=== PATIENT | female | born 1955 | race Caucasian/White ===

== ENCOUNTER → 2016-10-21 | Outpatient (CLI) | payer BC ==
[~2016-10-21] MED LIST: AMBI5TAB PO; AMLO2.5T PO; AMLO5TAB2 PO; ATOR40TA16 PO; BUTA1CAP PO; CAND16TA PO; CAND32TA10 PO; CLON.1 PO; CYAN100025 PO; FLUT50SP EACH NARE; HYDR-3533 PO; LOSA100T2 PO; METO50TA11 PO; SOMA350T PO; TERI14TA PO; VENL75TA PO
--- NOTE | 2016-10-21 17:05 | EKG ---
Date Performed: 10/21/2016 Time Performed: 12:54:25 PTAGE: 61 years EKG: SINUS BRADYCARDIA POSSIBLE LEFT ATRIAL ENLARGEMENT NONSPECIFIC ST & T-WAVE ABNORMALITY BORD KASIA ECG PREVIOUS TRACING : 02/04/2010 15.06 Compared to prior tracing no significant change DOCTOR: Reena Pollack Interpretating Date/Time 10/21/2016 17:05:06
== END ==
LOC: CPRE 12:36
PROVIDERS: ATTEND Obstetrics & Gynecology
DX: Z01.810 Encounter for preprocedural cardiovascular examination (principal); N85.00 Endometrial hyperplasia, unspecified; D25.9 Leiomyoma of uterus, unspecified; R94.31 Abnormal electrocardiogram [ECG] [EKG]
CPT/HCPCS: 93005

== ENCOUNTER → 2016-10-23 | Day surgery (SDC) | payer BC ==
--- NOTE | 2016-10-22 11:03 | MH ---
cc: TING JONES DATE OF ADMISSION 10/23/2016 DATE OF 1955 ADMITTING DIAGNOSIS bleeding with uterine fibroids. HISTORY OF PRESENT ILLNESS This is a 62-year-old white female para 1-1-2-1 reports LMP about 2001. Usually has some cramping each month that resolves spontaneously. Due to the cramping and discomfort, a pelvic ultrasound was obtained on 09/26/2016 which revealed at least two fibroids with endometrial thickening of 7-8 mm. The right ovary could not be seen, the left was normal, a simple cyst on the left ovary. She is now admitted for surgical evaluation. PAST OBSTETRICAL HISTORY Two vaginal deliveries, one son from a motor vehicle accident, two miscarriages. MEDICATIONS Include: 1. Amlodipine 2. Atorvastatin 3. Aubagio 4. Fioricet 5. Candesartan 6. Carisoprodol 7. Clonidine 8. Flonase 9. Hydrocodone 10. Losartan 11. Metoprolol. 12. Venlafaxine SERIOUS MEDICAL ILLNESSES MS ALLERGIES NEURONTIN SURGERIES None SOCIAL HISTORY Retired, 38 years. Alcohol, tobacco and drugs are none. FAMILY HISTORY Her family history is noncontributory. PHYSICAL EXAM This is a well-nourished well-developed white female. VITAL SIGNS: Stable. HEENT: Exam is normal. CHEST: Clear. HEART: Regular rate. BREASTS: The breasts are symmetrical. ABDOMEN: Benign. PELVIC: Normal external genitalia and BUS. The cervix is normal. Uterus is upper limits of normal size. Adnexa nonpalpable. ASSESSMENT As above. PLAN She is now admitted for hysteroscopy, D&C. While in the office, I explained procedures, the risks, benefits and complications and the possible need for additional treatment pending findings. The patient would like to proceed. MD YOLANDA Parker/DEJON /10:03 AM /10:37 AM
[~2016-10-23] VITALS: Ht 165.1 cm; Wt 55.9 kg
[~2016-10-23] MED LIST changes: +ACETAMINOPHEN 1000 MG/100 ML VIAL IV ONE; +ACETAMINOPHEN 1000 MG/100 ML VIAL IV SCH; -AMLO2.5T PO; -CAND16TA PO; +CHLORHEXIDINE GLUCONATE 2 % 1 PACK (2 CLOTHS) TOPICAL PRN; +DEXAMETHASONE SOD PHOS 4 MG/ML VIAL ONE; +DICLOFENAC SODIUM 37.5 MG/ML VIAL IV PUSH ONE; +DO NOT ADM ANY ANTICOAGULANT DRUGS PRN; +FAMOTIDINE 20 MG/2 ML VIAL ONE; +INSULIN HUMAN REGULAR 1,000 UNITS/10 ML VIAL SQ PRN; +LACTATED RINGER'S 1000 ML IV PRN; +METOPROLOL TARTRATE 25 MG TAB PO PRN; +MIDAZOLAM HCL 2 MG/2 ML VIAL ONE; +ONDANSETRON HCL 4 MG/2 ML VIAL IV PUSH ONE; +POVIDONE IODINE 5% (ANTISEPSIS KIT) 4 APPLICATIONS EACH NARE PRN; +PROMETHAZINE INJ 25 MG/ML VIAL IM PRN; +PROPOFOL 200 MG/20 ML AMP IV ONE; +SODIUM CHLORID 0.9% 500 ML IV PRN; +SODIUM CHLORIDE 0.9% INJ 100 ML ONE; +ceFAZolin 1,000 MG/NS 100 ML IV SCH; +ceFAZolin INJ 1,000 MG VIAL ONE
[2016-10-23 05:52] VITALS: BP 147/84; PULSE 59; RESP 20; TEMP 97.9; O2SAT 98
[2016-10-23 09:00] VITALS: BP 144/79; PULSE 50; RESP 18; TEMP 96.9; O2SAT 100
--- NOTE | 2016-10-24 15:07 | MP ---
cc: TING JONES DATE OF SURGERY: 10/23/2016. PREOPERATIVE DIAGNOSIS: Pelvic pain, uterine fibroids and endometrial thickening. POSTOPERATIVE DIAGNOSIS: Pelvic pain, uterine fibroids and endometrial thickening plus endometrial polyp. OPERATIVE PROCEDURE PERFORMED: Hysteroscopy and D&C. SURGEON: Ting Jones MD. ANESTHESIA General LMA. ESTIMATED BLOOD LOSS: Less than 5 cc. FLUIDS: 5 cc crystalloid. DESCRIPTION OF THE PROCEDURE IN DETAIL / OBJECTIVE FINDINGS Following the induction of adequate general LMA anesthesia the patient was prepped and draped supine on the operating table in the dorsal lithotomy position in the usual sterile fashion with the bladder being drained by in and out catheterization. Examination under anesthesia revealed about a ten week sized fibroid uterus. Adnexa nonpalpable. The cervix was exposed with hand-held retractors, grasped anteriorly with a single tooth tenaculum and sounded to 7 cm with a soft, atraumatic dilator. The cervix was dilated to an 18 Hanks dilator. The hysteroscope was passed through a normal cervix to reveal a small endometrial polyp. Endocervical was with a small serrated curette. The polyp was removed with polyp forceps. The uterus was curetted with small serrated curette for additional tissue, small in amount. The scope was passed again. The endometrial cavity was clean. All instruments were removed. All counts were correct. The patient was awakened and taken out of stirrups. She was awakened and taken to the recovery room in good condition. MD YOLANDA Parker/SANJUANA /7:21 AM /2:53 PM
== END | disposition home or self-care (01) ==
LOC: HSDC 05:07
PROVIDERS: ATTEND Obstetrics & Gynecology
DX: R10.2 Pelvic and perineal pain (principal); R93.8 Abnormal findings on diagnostic imaging of other specified body structures; D25.9 Leiomyoma of uterus, unspecified; N83.292 Other ovarian cyst, left side; Z79.899 Other long term (current) drug therapy; N84.0 Polyp of corpus uteri
CPT/HCPCS: 00952; 58558; 88305; J0131; J0690; J1100; J1130; J2250; J2405; J3010